=== PATIENT | female | born 1980 | race African-American/Black ===

== ENCOUNTER 2017-11-30 16:27 | Emergency (ER) | payer OTHER ==
[~2017-11-30] VITALS: Ht 157.5 cm; Wt 81.0 kg
[2017-11-30 17:00] VITALS: BP 170/99
== END 2017-11-30 18:08 | disposition home or self-care (01) ==
LOC: ER 16:27
DX: F32.9 Major depressive disorder, single episode, unspecified (principal); R45.851 Suicidal ideations; F41.9 Anxiety disorder, unspecified; I10 Essential (primary) hypertension
CPT/HCPCS: 99284